=== PATIENT | male | born 1980 | race Caucasian/White ===

== ENCOUNTER 2016-06-19 11:46 | Day surgery (SDC) | payer OTHER ==
[2016-06-18 16:16] VITALS: BMI 26.4
[2016-06-19] MEDS ORDERED: MIDAZOLAM HCL 2 MG/2 ML SINGLE DOSE VIAL ONE (13:20)
[2016-06-19] MEDS ORDERED: PROPOFOL 20 ML ONE ×2 (13:20)
[2016-06-19] MEDS ORDERED: LIDOCAINE HCL 2% (20ML MULTI-DOSE VIAL) NR ONE (13:25)
[2016-06-19] MEDS ORDERED: ceFAZolin SODIUM 1 GM VIAL ONE (13:51)
[2016-06-19] MEDS ORDERED: ONDANSETRON 4 MG/2 ML VIAL ONE (13:55)
[2016-06-19] MEDS ORDERED: KETOROLAC TROMETHAMINE 30 MG/1 ML VIAL ONE (13:55)
[2016-06-19] MEDS ORDERED: DEXAMETHASONE SOD PHOSPHATE 4 MG/1 ML VIAL ONE (13:55)
[2016-06-19] MEDS ORDERED: LIDOCAINE HCL 2% (50ML VIAL) INF ONE (14:03)
[2016-06-19 14:50] VITALS: TEMP 98.2
[2016-06-19 15:21] VITALS: BP 112/65; PULSE 62
--- NOTE | 2016-06-19 21:30 | OP ---
DATE OF OPERATION: 06/19/2016 PREOPERATIVE DIAGNOSIS: Left thumb proximal phalanx interarticular fracture, displaced. POSTOPERATIVE DIAGNOSIS: Left thumb proximal phalanx interarticular fracture, displaced. OPERATIVE PROCEDURE: Operative treatment of left thumb proximal phalanx interarticular fracture at metacarpophalangeal joint. SURGEON: Alen Mroley MD EMT P: PATRICK Dunn ANESTHESIA: Local with sedation. COMPLICATIONS: None. ESTIMATED BLOOD LOSS: Minimal. INDICATIONS FOR PROCEDURE: The patient is a 36-year-old male with the above finding, indicated for operative treatment. Risks, benefits, alternatives were discussed with patient at length. Proper informed consent was obtained. PROCEDURE: After proper identification of patient and correct operative site, patient brought to operating room, placed supine on the table, all bony prominences well padded. Sedation was given by the anesthesiologist. Local anesthesia was given with 2% lidocaine. Intravenous antibiotic given. Time-out procedure was performed. The left upper extremity was prepped and draped in usual sterile fashion. A well-padded tourniquet, sterile prep. Esmarch bandage to exsanguinate left upper extremity. No tourniquet was used. Under live fluoroscopy, the fracture was reduced and then 4 separate 0.08 K wires were placed across the fracture site, obtaining clinically acceptable alignment and internal fixation purchase. The pins were cut short and bent. Sterile dressings were applied. Splint was placed. The patient was reversed from anesthesia, brought to the recovery room in stable condition. He tolerated procedure well. Jamey Benitez, the assistant printer floor covering, was integral throughout the procedure. The procedure could not have been performed without a skilled operative assistant printer floor covering. ALEN MORLEY M.D. [id number]
== END 2016-06-19 16:00 | disposition home or self-care (01) ==
LOC: FASU 11:46
PROVIDERS: ATTEND Orthopaedic Surgery Hand Surgery
PROC: 0PSV34Z Reposition Left Finger Phalanx with Internal Fixation Device, Percutaneous Approach (ICD-10-PCS; principal; 2016-06-19 14:05)
DX: S62.512A Displaced fracture of proximal phalanx of left thumb, initial encounter for closed fracture (principal); X58.XXXA Exposure to other specified factors, initial encounter; Y93.9 Activity, unspecified; Y92.9 Unspecified place or not applicable
CPT/HCPCS: 73140-TC-LT